=== PATIENT | male | born 1960 | race Caucasian/White ===

== ENCOUNTER 2024-10-28 08:30 | Outpatient (CLI) | payer OTHER, SELFPAY ==
--- OUTSIDE RECORDS SUMMARY | 2024-09-06 19:00 | XMS_ITS | Continuity of Care Document ---
Author Organization [facility] Address [address] [place] [phone] Phone Care Team Providers Care Straightener And Aligner Name Role Phone Albert MACKAY, FACC, Kristopher Unavailable Unavail able Procedures Procedure Date ELECTROCARDIOGRAM REPORT Advance Directives Directive Yes / No Effective Date File Name No Information Encounters Encounter Description Practice Location Reason(s) For Visit Diagnoses Date Provider Providers Copied on Encounter [facility], [address] [place] [address], [id number], tel:[phone] [facility] No Information Albert Summers. [address] [place] [address], [id number], . tel:[phone] Referring Provider: Kristopher Price, [address] [place] [address], [id number]. tel:[phone] Family History Family Member Type Diagnosis Age At Onset No Information Payers Payer name Insurance type Covered green party ID Authoriza tion(s) [employer] [place] [id number] [employer] [place] [id number] Social History Type Description Quantity Date Captured Comments Sex Male Smoking Status No Information Chief Complaint And Reason For Visit No Information Reason For Referral Reason For Referral No Information History Of Present Illness Encounter Date Complaint History Of Prese nt Illness No Information Functional Status Date Functional Assessmen t No Information Instructions Date Instruction Additional Infor mation No Information Assessments Type Assessment Date No Information Patient Care Teams Name Effective Dates (start - stop) Status Members No Information
--- NOTE | ~2024-10-28 | MR_ITS ---
EXAMINATION: MR shoulder RT wo con DATE: 10/28/2024 09:15 INDICATION: Right shoulder pain after falling into a wall TECHNIQUE: Magnetic resonance imaging (MRI) of the right shoulder was performed without intravenous contrast. Sequences included axial PD-weighted FS FSE, coronal oblique PD-weighted FS FSE, coronal oblique T2-weighted FS FSE, sagittal PD-weighted FS FSE, and sagittal T1-weighted SE. COMPARISON: None. FINDINGS: Coracoacromial arch: The acromion undersurface is curved in morphology (type II). The coracoacromial ligament is normal. Mild to moderate acromioclavicular osteoarthritis. Rotator cuff: Moderate supraspinatus and mild infraspinatus tendinopathy without tear. The teres minor tendon is normal. Mild subscapularis tendinopathy without tear. Normal rotator cuff muscle bulk and signal. Biceps tendon, glenoid labrum and glenohumeral cartilage: Long head of the biceps tendon is normal. There is a tear of the 9:00-11:00 position of the posterior superior glenoid labrum mild partial-thickness cartilage loss with smooth chondral surface along the anterosuperior medial aspect of the humeral head. Remainder the glenohumeral cartilage appears normal. Fluid: Physiologic amount of fluid in the glenohumeral joint and biceps tendon sheath. No loose osteochondral bodies. Mild increased fluid signal in the subacromial/subdeltoid bursa consistent with mild bursitis. There is also a small amount of fluid in the subcoracoid bursa also consistent with bursitis. Bones: Bone alignment is normal. No fracture or pathologic marrow replacing process. - Like signal change underlying the middle facet of the greater tuberosity likely related to rotator cuff disease. IMPRESSION: 1. Moderate supraspinatus and mild infraspinatus subscapularis tendinopathy without discrete tear. 2. Mild right glenohumeral osteoarthritis with tear of the posterior superior glenoid labrum. 3. Mild to moderate acromioclavicular osteoarthritis. 4. Mild subacromial/subdeltoid and subcoracoid bursitis. Reviewed, dictated and finalized at location A. IMPRESSION: 1. Moderate supraspinatus and mild infraspinatus subscapularis tendinopathy wit hout discrete tear. 2. Mild right glenohumeral osteoarthritis with tear of the posterior superior g lenoid labrum. 3. Mild to moderate acromioclavicular osteoarthritis. 4. Mild subacromial/subdeltoid and subcoracoid bursitis.
--- OUTSIDE RECORDS SUMMARY | 2024-10-28 08:33 | XMS_ITS | Clinical Summary ---
Author Organization [facility] Address [address] [place] [phone] Care Team Providers Care Leg Breaker Name Role Phone Tommy Villavicencio Primary Care Provider [phone] Allergies No known active allergies Medications lisinopril-hydro CHLOROthiazide (ZESTORETIC) 20-25 mg per tabletIndication s:hypertension Take 1 tablet by mouth daily Active atorvastatin (LIPITOR) 40 mg tablet Take 1 tablet (40 mg total) by mouth daily Active Active Problems Problem Noted Date Diagnosed Date Unintentional weight loss 2024 Colon cancer screening 2024 Surgical History Surgery Date Site/Laterality Comments COLONOSCOPY EYE SURGERY Bilateral Medical History Medical History Date Comments Hypertension Hyperlipidemia Sleep apnea Social History Tobacco Use Types Packs/Day Years Used Date Smoking Tobacco: Every Day Cigarettes Smokeless Tobacco: Never Tobacco Cessation:Ready to Q uit: Not Asked; Counseling Given: Not Answered AUDIT-C Answer Date Recorded Q1: How often do you have a drink containing alc ohol? Monthly or less 03/30/2024 Q2: How many drinks containi ng alcohol do you have on a typical day when you are drinking? 1 or 2 03/30/2024 Q3: How often do you have si x or more drinks on one occasion? Never 03/30/2024 Personal Safety Answer Date Recorded Have you ever been in or are you currently in a harmful physical or emotional relationship or is someone making you feel afraid or unsafe? Denies 03/30/2024 Sex and Gender Information Value Date Recorded Sex Assigned at Not on file Legal Sex Male 7:04 PM LABOR GANG SUPERVISOR Gender Identity Not on file Sexual Orientation Not on file Obstetrics History Last Filed Vital Signs Vital Sign Reading Time Taken Comments Blood Pressure 143/89 03/30/2024 9:50 AM LABOR GANG SUPERVISOR Pulse 56 03/30/2024 9:50 AM LABOR GANG SUPERVISOR Temperature 35.9 C (96.7 F) 03/30/2024 9:20 AM LABOR GANG SUPERVISOR Respiratory Rate 17 03/30/2024 9:50 AM LABOR GANG SUPERVISOR Oxygen Saturation 99% 03/30/2024 9:50 AM LABOR GANG SUPERVISOR Inhaled Oxygen Concentration - - Weight 68 kg (150 lb) 03/30/2024 7:45 AM LABOR GANG SUPERVISOR Height 177.8 cm (5' 10) 03/30/2024 7:45 AM LABOR GANG SUPERVISOR Body Mass Index 21.52 03/30/2024 7:45 AM LABOR GANG SUPERVISOR Plan of Treatment Health Maintenance Due Date Last Done Comments Depression Screening 1960 Hepatitis C Screening 1960 Prostate Cancer Screening-PSA 1960 DTaP/Tdap/Td Vaccine (1 - Tdap) 1969 Hepatitis B Screening 02/23/1976 Pneumococcal vaccine 65+ (1 of 2 - PCV) 1977 Zoster Vaccine (1 of 2) 02/23/2008 Abdominal Aortic Aneurysm (A AA) Screen 2023 Well Visit 65+ 2023 Covid-19 Vaccine ( season) 2023 06/25/2021, 10/10/2020, 09/12/2020 Influenza Vaccine (#1) 2024 Fall Risk Assessment 03/30/2025 03/30/2024 Colon Cancer Screening-Colonoscopy 03/30/20342024 Procedures Procedure Name Priority Date/Time Associated Diagnosis Comments COLONOSCOPY 03/30/2024 8:45 AM LABOR GANG SUPERVISOR from Last 3 Months or Most Recently Relevant to Health Maintenance Results * Colonoscopy (03/30/2024 8:45 AM LABOR GANG SUPERVISOR) Anatomical Region Laterality Modality Other Narrative Procedure Note Vineet Sinclair MD - 03/30/2024 8:[address] [facility] Patient Name: Everardo Jacobo Procedure Date: 03/30/2024 8:45 AM Date of : 1960 Admit Type: Outpatient Age: 64 Gender: Male Attending MD: Vineet Sinclair MD Room: [facility] ENDOSCOPY ROOM 05 Note Status: Finalized Procedure: Colonoscopy Indications: High risk colon cancer surveillance: Personalhistory of colonic polyps Referring MD: Vineet Sinclair MD Providers: Vineet Sinclair MD Medicines: See the Anesthesia note for documentation of the administered medications Complications: No immediate complications. Estimated Blood Loss: Estimated blood loss was minimal. Procedure: Pre-Anesthesia Assessment: - Prior to the procedure, a History and Physicalwas performed, and patient medications and allergieswere reviewed. The risks and benefits of the procedureand the sedation options and risks were discussed withthe patient. All questions were answered and informed consent was obtained. Patient identification and proposed procedure were verified. After reviewingthe risks and benefits, the patient was deemed in satisfactory condition to undergo the procedure.The anesthesia plan was to use monitored anesthesiacare (MAC). Immediately prior to administration of medications, the patient was re-assessed foradequacy to receive sedatives. The heart rate, respiratory rate, oxygen saturations, blood pressure, adequacyof pulmonary ventilation, and response to care were monitored throughout the procedure. The physical status of the patient was re-assessed after the procedure. The benefits, risks and alternatives of theprocedure and sedation were discussed and informed consentwas obtained. All questions were answered. Please referto the signed informed consent document in the medical record. The scope was passed under direct vision.The Colonoscope was introduced through the anus and advanced to the terminal ileum, with identificationof the appendiceal orifice and IC valve. Thecolonoscopy was performed without difficulty. The patient tolerated the procedure well. The quality of thebowel preparation was good. Scope withdrawal time was 18 minutes. Prep was administered in a split dose. Findings: The perianal and digital rectal examinations were normal. Visualized terminal ileum normal. A 6 mm polyp was found in the ascending colon. The polyp was sessile. The polyp was removed with a cold snare. Resection and retrieval were complete. Five sessile polyps were found in the transverse colon. The polypswere 5 - 8 mm in size. These polyps were removed with a cold snare.Resection and retrieval were complete. A 15 mm polyp was found in the sigmoid colon. The polyp was pedunculated. The polyp was removed with a hot snare. Resection and retrieval were complete. For prophylaxis of delayed bleeding, asingle clip was placed on the resection stalk. A 5 mm polyp was found in the sigmoid colon. The polyp was sessile.The polyp was removed with a cold snare. Resection and retrieval were complete. Small internal hemorrhoids. Impression: - One 6 mm polyp in the ascending colon, removedwith a cold snare. Resected and retrieved. - Five 5 mm polyps in the transverse colon, removed with a cold snare. Resected and retrieved. - One 15 mm polyp in the sigmoid colon, removedwith a hot snare. Resected and retrieved. For prophylaxisof delayed bleeding, a single clip was placed on the resection stalk. - One 5 mm polyp in the sigmoid colon, removed witha cold snare. Resected and retrieved. - Hemorrhoids. Recommendation: - Await pathology results. - Resume previous diet today. - Discharge patient to home. - Patient has a contact number available for emergencies. The signs and symptoms of potential delayed complications were discussed with thepatient. Return to normal activities tomorrow. Written discharge instructions were provided to thepatient. - I would be happy to see you in my GI clinic ifyou have further questions or concerns or if symptoms progress Vineet Sinclair MD 03/30/2024 9:25:38 AM Number of Addenda: 0 Note Initiated On: 03/30/2024 8:45 AM Recognized by the [employer] for promoting quality in endoscopy Vineet Sinclair MD ENDOSCOPY PROCEDURES Jen l Result from Last 3 Months or Most Recently Relevant to Health Maintenance Insurance [facility] Care Teams Leg Breaker Relationship Specialty Start [place] [address] [place] [address] PCP - General Physician Respiratory Scientist 04/27/23
--- OUTSIDE RECORDS SUMMARY | 2024-10-28 08:33 | XMS_ITS | Patient Health Record ---
Author Organization [facility] [employer] Address [facility] [facility] [address] [place] [address] Care Team Providers Care Supervising Broker Name Role Phone Karlos Salazar Unavailable [phone] Reason For Referral No Information Social History Social History Additional Details Category Social Info Options Details Migrated Social History Migrated Social History Tobacco Years: Former smoker 07/29/2019 Plan Of Treatment No Information Insurance Providers Payer Name Payer Address Payer Phone Subscriber Number Group Number Insured Name Patient Relationship to Insured Coverage Start Date Coverage End Date [facility] [address] [place] [address] [id number] MARY JO ZURITA Self - patient is the insured
== END 2024-10-28 08:31 | disposition home or self-care (01) ==
PROVIDERS: PCP Emergency Medicine; Visit Provider Emergency Medicine
DX: M75.81 Other shoulder lesions, right shoulder (principal); M19.011 Primary osteoarthritis, right shoulder; S43.431A Superior glenoid labrum lesion of right shoulder, initial encounter; X58.XXXA Exposure to other specified factors, initial encounter; M75.51 Bursitis of right shoulder; R29.898 Other symptoms and signs involving the musculoskeletal system
CPT/HCPCS: 73221